=== PATIENT | female | born 1970 | race Caucasian/White ===

== ENCOUNTER 2017-10-09 01:48 | Emergency (ER) | payer BC, OTHER ==
[2017-10-09 02:04] VITALS: BP 128/90
--- NOTE | 2017-10-09 02:11 | EDM.PDOC ---
ED HPI GENERAL MEDICAL PROBLEM - General Chief Complaint: Lower Extremity Injury/Pain Stated Complaint: FOOT INJURY Time Seen by Provider: 10/09/17 02:07 Source of Information: Reports: Patient History Limitations: Reports: No Limitations - History of Present Illness INITIAL COMMENTS - FREE TEXT/NARRATIVE: The patient was at work at [employer] and her left foot got hit by a palate luz. She has ecchymosis and pain to the left 4th toe. She could walk on it initially. She has no other injuries. Onset: Sudden Duration: Hour(s): Location: Reports: Lower Extremity, Left (4th toe) Quality: Reports: Sharp Severity: Moderate Improves with: Reports: Immobilization Worsens with: Reports: Movement Context: Reports: Trauma (Hit by a palate luz) Associated Symptoms: Reports: No Other Symptoms Left Feet Pain Score (Numeric/FACES): 5 - Related Data Allergies Allergy/AdvReac Type Severity Reaction Status Date / Time Penicillins Allergy Mild Vomiting Verified 10/09/17 02:06 morphine Allergy Unknown Rash Verified 10/09/17 02:06 Past Medical History - Past Health History Medical/Surgical History: Denies Medical/Surgical History Other HEENT History: Wears glasses SUGAR CANE GROWER History: Reports: Musculoskeletal History: Reports: Fracture Psychiatric History: Reports: Anxiety Hematologic History: Reports: Anemia Oncologic (Cancer) History: Reports: Cervix Dermatologic History: Reports: Cellulitis - Infectious Disease History Infectious Disease History: Reports: Shingles - Past Surgical History HEENT Surgical History: Reports: Eye Surgery GI Surgical History: Reports: Cholecystectomy Female Surgical History: Reports: Section, Hysterectomy Social & Family History - Family History Family Medical History: Noncontributory - Tobacco Use Smoking Status *Q: Former Smoker Years of Tobacco use: 3 Packs/Tins Daily: 0.5 Used Tobacco, but Quit: Yes Month/Year Tobacco Last Used: june Second Hand Smoke Exposure: Yes - Caffeine Use Caffeine Use: Reports: None - Alcohol Use Days Per Week of Alcohol Use: 0 Number of Drinks Per Day: 0 Total Drinks Per Week: 0 - Recreational Drug Use Recreational Drug Use: No Drug Use in Last 12 Months: No - Living Situation & Occupation Living situation: Reports: , with Family Occupation: Employed Review of Systems - Review of Systems Review Of Systems: See Below Constitutional: Reports: No Symptoms Eyes: Reports: No Symptoms Ears: Reports: No Symptoms Nose: Reports: No Symptoms Mouth/Throat: Reports: No Symptoms Respiratory: Reports: No Symptoms Cardiovascular: Reports: No Symptoms GI/Abdominal: Reports: No Symptoms Genitourinary: Reports: No Symptoms Musculoskeletal: Reports: Other (left 4th toe injury) ED EXAM, GENERAL - Physical Exam Exam: See Below Exam Limited By: No Limitations General Appearance: Alert, No Apparent Distress Ears: Normal External Exam Nose: Normal Inspection Head: Atraumatic, Normocephalic Neck: Normal Inspection Respiratory/Chest: No Respiratory Distress Extremities: Other (Ecchymosis and edema to the left 4th toe. Good sensation and capillary refill distally.) Course - Vital Signs Last Recorded V/S: Last Vital Signs Temp 97.7 F 10/09/17 01:58 Pulse 89 10/09/17 01:58 Resp 14 10/09/17 01:58 BP 128/90 10/09/17 01:58 Pulse Ox 97 10/09/17 01:58 - Orders/Labs/Meds Orders: Active Orders 24 hr Category Date Time Status Foot Comp Min 3V Lt [CR] Stat Exams 10/09/17 02:07 Taken - Re-Assessments/Exams Free Text/Narrative Re-Assessment/Exam: 10/09/17 02:36 On one of the views it appears there is a slight fracture to the proximal phalynx. I will have her wear a hard sole shoe. Departure - Departure Time of Disposition: 02:40 Disposition: Home, Self-Care 01 Condition: Good Clinical Impression: Toe fracture, left Qualifiers: Encounter type: initial encounter Toe: lesser toe Fracture type: closed Phalanx : proximal Fracture alignment: nondisplaced Qualified Code(s): S92.515A - Nondisplaced fracture of proximal phalanx of left lesser toe(s), initial encounter for closed fracture - Discharge Information Referrals: PCP,None [Primary Care Provider] - Forms: ED Department Discharge Additional Instructions: Ice your toe for 15 minutes 3 times per day for 2 days. Try to elevate your toe as much as you can for the next day. Take motrin or tylenol for pain. Wear a stiff soled shoe for about a week. Please return if you are worse. - My Orders Last 24 Hours: My Active Orders 10/09/17 02:07 Foot Comp Min 3V Lt [CR] Stat - Assessment/Plan Last 24 Hours: My Active Orders 10/09/17 02:07 Foot Comp Min 3V Lt [CR] Stat
--- NOTE | 2017-10-09 14:02 | CR ---
Left foot: Four views of the left foot were obtained. Comparison: No prior foot exam. Slight deformity is seen within the distal shaft of the fifth metatarsal. Uncertain if this is old or acute. No additional fracture or other bony abnormality is seen. Impression: 1. Slight deformity within the distal shaft of the fifth metatarsal. As mentioned above, uncertain if this is an acute or old fracture. Please correlate with the patient's symptoms. 2. No additional abnormality is appreciated on left foot exam. Diagnostic code #3
== END 2017-10-09 02:45 | disposition home or self-care (01) ==
LOC: JD.ED 01:48
DX: S92.515A Nondisplaced fracture of proximal phalanx of left lesser toe(s), initial encounter for closed fracture (principal); Z88.0 Allergy status to penicillin; Z88.5 Allergy status to narcotic agent; Z87.891 Personal history of nicotine dependence; W22.8XXA Striking against or struck by other objects, initial encounter; Y92.59 Other trade areas as the place of occurrence of the external cause
CPT/HCPCS: 73630-26-LT; 73630-LT; 99283

== ENCOUNTER 2021-11-29 11:26 | Emergency (ER) | payer BC, OTHER ==
[2021-11-29 12:24] VITALS: BP 164/96; PULSE 99
== END 2021-11-29 13:13 | disposition home or self-care (01) ==
LOC: JD.ED 11:26
DX: H60.502 Unspecified acute noninfective otitis externa, left ear (principal); F17.210 Nicotine dependence, cigarettes, uncomplicated; Z88.0 Allergy status to penicillin; Z88.5 Allergy status to narcotic agent
CPT/HCPCS: 99282; 99283